=== PATIENT | female | born 1940 | race Caucasian/White ===

== ENCOUNTER → 2017-02-09 16:25 | Outpatient (CLI) | payer MEDICARE, OTHER | END | disposition home or self-care (01) | LOC: D.US 16:00 | DX: M79.605 Pain in left leg (principal); M79.604 Pain in right leg; R22.43 Localized swelling, mass and lump, lower limb, bilateral ==

== ENCOUNTER 2018-04-03 21:45 | Observation (INO) | payer MEDICARE, OTHER ==
[~2018-04-03] VITALS: Ht 167.6 cm; Wt 75.1 kg
--- NOTE | ~2018-04-03 | MORECARE ---
CASE MANAGEMENT DISCHARGE SUMMARY PATIENT: LUIS TELLES HEATHER UNIT: [id number] ADM DATE: 04/03/18 AGE: 78 : 40 SEX: F ROOM/BED: D.2121 AUTHOR: VÍCTOR LAN PHYSICIAN: REFERRING PHYSICIAN: WILLOW DICKSON MD DATE OF SERVICE: 04/04/18 Discharge Plan Patient Name: LUIS TELLES Facility: [facility] : 1940 Planned Disposition: Home Anticipated Discharge Date: 04/04/18 Discharge Date: Expected LOS: 1 Initial Reviewer: [email or web address] Initial Review Date: 04/04/2018 Generated: 04/04/18 6:16 pm Patient Name: LUIS TELLES Page [id number] at 1717 All edits/amendments must be made on the electronic document DICTATION DATE: 04/04/181715 MEDICATION SPECIALIST: NIURKA 04/04/181715 RPT#: [id number] DC DATE: STATUS: ADM IN [facility] [address] [place] [address] END OF REPORT
--- NOTE | ~2018-04-03 | HEMODYNAMI ---
PATIENT:LUIS TELLES MEDICAL RECORD: [id number] : 40 LOCATION:[facility].2122 ADMISSION DATE: 04/03/18 Generatedon:04/04/201812:40 Patient name: LUIS TELLES Patient #: [id number] SSN: : 1940 Date of study: 04/04/2018 Page: Of Hemodynamic Procedure Report Patient Data Patient Demographics Procedure consent was obtained First Name: LUIS Gender: Female Last Name: KOKI : 1940 [facility] Initial: HEATHER Age: 78 year(s) Patient #: [id number] Race: Unknown Additional ID: [id number] Contact details Address: [address] [place] [address] State: [place] City: [place] Zip code: [address] Admission Admission Data Admission Date: 04/03/2018 Admission Time: 23:43 Room #: [facility] Procedure Procedure Types Cath Procedure Diagnostic Procedure [facility] w/Coronaries Procedure Description Procedure Date Procedure Date: 04/04/2018 Procedure Start Time: 12:30 Procedure End Time: 12:35 Procedure Staff Name Function Francisco Mcgee MD Performing Physician Campos Shetty RT Monitor Alexsander Garcia RN Nurse Mignon Pappas RT Scrub Lex Em RT Sheet Metal Journeyman Procedure Data Cath Procedure Fluoroscopy Diagnostic fluoroscopy Total fluoroscopy Time: 0.8 time: 0.8 min min Diagnostic fluoroscopy Total fluoroscopy dose: 89 dose: 89 mGy mGy Contrast Material Contrast Material Type Amount (ml) Isovue 300 37 Entry Location Entry Primary Successful Side Size Upsize Upsize Entry Closure Styles ccessful Closure Location (Fr) 1 (Fr) 2 (Fr) Remarks Device Remarks Radial Right 6 Fr Mechanical artery Short Compression Estimated blood loss: 10 ml Diagnostic catheters Device Type Used For End Catheter Placement DIAGNOSTIC Abdiel 110cm Procedure 5Fr catheter ([id number]) Procedure Complications No complications Procedure Medications Medication Administration Route Dosage Oxygen etCO2 Nasal cannula 2 l/min Heparin Flush Bag added to field 2 bags (1000units/500ml NS) 0.9% NaCl I.V. 100 ml/hr Radial Cocktail added to field 1 syringe (Verapomil 2mg/Nitro 400mcg/Heparin 1500units) Fentanyl I.V. 50 mcg Versed I.V. 1 mg Radial Cocktail I.A. 1 syringe (Verapomil 2mg/Nitro 400mcg/Heparin 1500units) Fentanyl I.V. 50 mcg Versed I.V. 1 mg Hemodynamics Rest Heart Rate: 69 (bpm) Snapshots Pre Cath Intra NCS Post Cath Vital Signs Time Heart Resp SPO2 etCO2 NIBP (mmHg) Rhythm Pain Sedation Rate (ipm) (%) (mmHg) Status Level (bpm) 12:16:16 64 16 94 0 133/75(108) NSR 0 (11) 10(A) , No pain 12:20:38 72 17 93 0 138/69(115) NSR 0 (11) 10(A) , No pain 12:24:58 72 17 90 17.2 149/77(99) NSR 0 (11) 10(A) , No pain 12:29:18 72 16 93 14.2 143/75(117) NSR 0 (11) 10(A) , No pain 12:33:34 78 16 90 22.4 122/68(89) NSR 0 (11) 9(A) , No pain 12:38:00 76 16 91 38.2 134/71(99) NSR 0 (11) 9(A) , No pain Medications Time Medication Route Dose Verified Delivered Reason Notes Effectiveness by by 12:22:46 Oxygen etCO2 2 l/min Francisco Beltre Per Nasal Everardo Garcia RN physician cannula 12:22:55 Heparin Flush added 2 bags Fracnisco Beltre used for Bag to Everardo Garcia RN procedure (1000units/500ml field NS) 12:23:06 0.9% NaCl I.V. 100 Francisco Beltre Per ml/hr Everardo Garcia RN physician 12:23:16 Radial Cocktail added 1 Francisco Beltre used for (Verapomil to syringe Everardo Garcia RN procedure 2mg/Nitro field 400mcg/Heparin 1500units) 12:29:58 Fentanyl I.V. 50 mcg Francisco Beltre for sedation Everardo Garcia RN 12:30:04 Versed I.V. 1 mg Francisco Beltre for sedation Everardo Garcia RN 12:31:06 Radial Cocktail I.A. 1 Francisco Singh for (Verapomil syringe Everardo Mcgee MD vasodilation 2mg/Nitro 400mcg/Heparin 1500units) 12:32:14 Fentanyl I.V. 50 mcg Francisco Beltre for sedation Everardo Garcia RN 12:32:19 Versed I.V. 1 mg Francisco Beltre for sedation Everardo Garcia wet process head miller Log Time Note 11:50:45 Lex Em RT(R) sent for patient. Start room use. 11:58:51 Time tracking: Regular hours (M-F 7:00 - 5:00) 11:58:55 Plan of Care:Hemodynamics will remain stable., Cardiac rhythm will remain stable., Comfort level will be maintained., Respiratory function will remain adequate., Patient/ family verbilizes understanding of procedure., Procedure tolerated without complication., Recovers from procedure without complications.. 12:06:40 Patient received from PCU to CCL 3 Alert and oriented. Tansferred to table in Supine position. 12:06:41 Warm blankets applied, and burak hugger turned on for patient comfort. 12:06:42 Correct patient and procedure confirmed by team. 12:06:43 Signed procedure consent form obtained from patient. 12:06:44 ECG and BP/O2 sat monitors applied to patient. 12:06:44 Full Disclosure recording started 12:15:03 Vital chart was started 12:21:49 Baseline sample Acquired. 12:21:54 Rhythm: sinus rhythm 12:22:20 H&P Date Dictated: 04/03/2018 Within 30 days and on chart., H&P Addendum completed by physician on day of procedure. (MUST COMPLETE FOR ALL OUTPATIENTS). 12:22:20 Pre-procedure instructions explained to patient. 12:22:21 Pre-op teaching completed and patient verbalized understanding. 12:22:23 Family in patients room. 12:22:24 Patient NPO since Midnight. 12:22:26 Is the patient allergic to Iodine/contrast media? No. 12:22:34 Is patient on blood thinner?No 12:22:36 Patient diabetic? No. 12:22:38 Previous problem with sedation/anesthesia? No ? 12:22:39 Snore? Yes 12:22:41 Sleep apnea? No 12:22:43 Deviated septum? No 12:22:44 Opens mouth fully? Yes 12:22:45 Sticks out tongue? Yes 12:22:46 Oxygen 2 l/min etCO2 Nasal cannula was administered by Alexsander Garcia RN; Per physician; 12:22:46 Airway obstruction? No ? 12:22:49 Dentures? Yes IN 12:22:55 Heparin Flush Bag (1000units/500ml NS) 2 bags added to field was administered by Alexsander Garcia RN; used for procedure; 12:23:06 0.9% NaCl 100 ml/hr I.V. was administered by Alexsander Garcia RN; Per physician; 12:23:16 Radial Cocktail (Verapomil 2mg/Nitro 400mcg/Heparin 1500units) 1 syringe added to field was administered by Alexsander Garcia RN; used for procedure; 12:23:23 Pre procedure: right dorsailis pedis pulse 1+ Palpable, but thready & weak; easily obliterated 12:23:24 Modified Hair's test Ulnar < 7 seconds 12:23:26 Patient pain scale 0/10 ?. 12:23:30 IV patent on arrival in left forearm with 0.9% NaCl at [facility]. 12:23:33 Lab results completed and on chart. 12:23:38 Right Radial & Right Groin area was prepped with chlora-prep and draped in sterile fashion 12::39 Alarms reviewed by R. N. 12:23:40 Sharps counted by scrub and verified by R.N. 12::44 Physician paged 12::31 Physician arrived 12::31 --------ALL STOP TIME OUT------ 12:28:32 Final Timeout: patient, procedure, and site verified with staff and physician. All members of the team are in agreement. 12:28:36 Right Radial & Right Groin site verified by team. 12::39 Physical assessment completed. ASA score P 2 - A patient with mild systemic disease as per Francisco Mcgee MD. 12::45 Sedation plan: IV Moderate Sedation Medication:Versed, Fentanyl 12:29:23 Use device set Radial Dx or PCI 12:29:25 ACIST Syringe (30908) opened to sterile field. 12:29:25 Medline Cath Pack ([id number]) opened to sterile field. 12:29: Bag Decanter () opened to sterile field. 12:: ACIST Hand Control (35981) opened to sterile field. 12::28 ACIST Manifold (41504) opened to sterile field. 12:29:29 Tegaderm 4 x 4 (1626W) opened to sterile field. 12::29 MBrace Wrist Support ([id number]) opened to sterile field. 12::33 SHEATH 6FR Slender (45-3861) opened to sterile field. 12:29:58 Fentanyl 50 mcg I.V. was administered by Alexsander Garcia RN; for sedation; 12:30:04 Versed 1 mg I.V. was administered by Alexsander Garcia RN; for sedation; 12:30:05 Procedure started. 12:30:12 Local anesthetic to right radial artery with Lidocaine 2% by Francisco Mcgee MD.INITIAL ACCESS ONLY 12:30:20 Zero performed for pressure channel P1 12:31:02 A 6 Fr Short sheath was inserted into the Right Radial artery 12:31:06 Radial Cocktail (Verapomil 2mg/Nitro 400mcg/Heparin 1500units) 1 syringe I.A. was administered by Francisco Mcgee MD; for vasodilation; 12:31:35 A DIAGNOSTIC Abdiel 110cm 5Fr catheter (024582) was advanced over the wire and used for Procedure. 12:31:43 DIAGNOSTIC WIRE .035 260cm J wire (761438) opened to sterile field. 12:31:55 LV angiography performed. 12:31:57 LV gram done using DONATO 12:32:03 EF : 60 % 12:32:13 Injector settings: Ml/sec: 5, Volume: 15, 12:32:14 Fentanyl 50 mcg I.V. was administered by Alexsander Garcia RN; for sedation; 12:32:18 LCA angiography performed. 12:32:19 Versed 1 mg I.V. was administered by Alexsander Garcia RN; for sedation; 12:32:53 RCA angiography performed. 12:33:05 Catheter removed. 12:33:07 TR BAND Standard ([id number]) opened to sterile field. 12:33:21 Sheath removed intact; hemostasis achieved with Mechanical Compression to the Right Radial artery. 12:33:24 Procedure ended.(Physican Out) 12:34:03 Fluoroscopy time 00.80 minutes. 12:34:17 Fluoroscopy dose: 89 mGy 12:34:17 Flurop Dose total: 89 12:34:21 Contrast amount:Isovue 300 37ml. 12:34:23 Sharps counted by scrub and verified by R.N. 12:34:24 Insertion/operative site no bleeding no hematoma. 12:34:32 TR band inflated with 12cc of air. 12:34:34 Post Procedure Pulses reassessed and unchanged 12:34:37 Post-procedure physical assessment completed. ASA score P 2 - A patient with mild systemic disease as per Francisco Mcgee MD. 12:34:40 Post procedure rhythm: unchanged. 12:34:43 Estimated blood loss: 10 ml 12:34:44 Post procedure instruction explained to patient.Patient verbalizes understanding. 12:34:44 Patient needs reinforcement of post procedure teaching. 12:34:50 Procedure and supply charges have been captured, reviewed, submitted and are correct. 12:34:52 Procedure Complication : No complications 12:35:22 Vital chart was stopped 12:35:23 See physician's report for complete and final results. 12:35:[address] [facility]. 12:35:[address] Patient [address] [facility] with Bed. 12:35:58 Procedure ended. 12:35:58 Full Disclosure recording stopped 12:38:33 End room use (Document Last) Device Usage Item Name Manufacture Quantity Catalog Hospital Part Current Minimal Lot# / Number Charge Number Stock Stock Serial# Code ACIST Acist 1 77722 [id number] 619730 338444 20 Syringe Medical (29548) Systems Inc Medline Medline 1 [id number] [id number] 71764 313180 5 Cath Pack ([id number]) Bag Microtek 1 616194 72943 434387 5 Decanter Medical Inc. () ACIST Hand Acist 1 81591 820925 205792 818944 5 Control Medical (83322) Systems Inc ACIST Acist 1 82131 720332 101574 126932 5 Manifold Medical (01888) Systems Inc Tegaderm 4 3M 1 1626W 498077 096229 270997 5 x 4 (1626W) MBrace Advanced 1 [id number] 678115 35951 332949 5 Wrist Vascular Support Dynamics ([id number]) SHEATH 6FR Terumo 1 [id number] 190936 768935 313310 5 Slender (801060) DIAGNOSTIC Terumo 1 40-5794 009071 213613 981995 5 Abdiel 110cm 5Fr catheter (026940) DIAGNOSTIC [place] 1 553639 324373 781554 166470 30 WIRE .035 260cm J wire (300665) TR BAND Terumo 1 [id number] 301092 585759 068569 40 Standard ([id number]) Signature Audit [place] Stage Time Signature Unsigned Intra-Procedure 04/04/2018 Campos Shetty 12:40:17 PM RT(R) Signatures Monitor : Campos Shetty RT Signature : Date : Time : [address] [address]
--- NOTE | ~2018-04-03 | OP ---
PATIENT NAME: LUIS TELLES MEDICAL RECORD: [id number] :40 LOCATION:D.M2 D.2 ADMISSION DATE:04/03/18 SURGEON: CHARLEEN PICKARD MD DATE OF OPERATION: 04/04/2018 PROCEDURES: 1. Left heart catheterization. 2. Selective coronary angiography. 3. Left ventriculogram. INDICATION: Chest pain compatible with angina. PROCEDURE IN DETAIL: After informed consent was obtained and after a detailed explanation of the risks, benefits as well as alternative therapies, the patient elected to proceed with angiogram and heart catheterization. The right radial area was prepped and draped in normal sterile fashion. Right radial artery was cannulated via modified Seldinger technique with placement of 5-Serbian sheath. All catheters exchanged through this sheath. FINDINGS: Left ventriculogram was performed in a standard 30-degree DONATO view, reveals good cardiac wall motion throughout all segments. Overall ejection fraction estimated at 60%. SELECTIVE CORONARY ANGIOGRAPHY: Left main, left anterior descending, left circumflex, right coronary artery are all smooth-walled vessel with no angiographic evidence of coronary artery disease. OVERALL IMPRESSION: 1. No angiographic evidence of coronary artery disease. 2. Normal left heart pressures. 3. Normal left ventricular systolic function. Chest pain is noncardiac in etiology. No further cardiac workup needs to be ascertained. TRANSINT:[id number] Voice Confirmation ID: [id number] DOCUMENT ID: [id number] CHARLEEN PICKARD MD at 1228 CC: [id number] DICTATION DATE: 04/04/18 1237 WEIGHT TRAINER: 04/04/18 1505 DIS IN 04/04/18 [id number] [place] [address]
[2018-04-03] MEDS ORDERED: OMEPRAZOLE40 MG PO (21:58)
[2018-04-03] MEDS ORDERED: ADALAT CC90 MG PO (21:58)
[2018-04-03] MEDS ORDERED: ROBAXIN500 MG PO (22:00)
[2018-04-03] MEDS ORDERED: IBUPROFEN800 MG PO (22:01)
[2018-04-03] MEDS ORDERED: HYDROCODON-ACET15 ML PO (22:02)
[2018-04-03] MEDS ORDERED: NEURONTIN 300300 MG PO (22:03)
[2018-04-03] MEDS ORDERED: ESTRACE1 MG PO (22:04)
[2018-04-03] MEDS ORDERED: CELEXA20 MG PO (22:13)
[2018-04-03] MEDS ORDERED: VALIUM5 MG PO (22:14)
[2018-04-03 22:19] LABS: BASOPHILS 0.5 % (0-2); EOSINOPHILS 3.1 % (0-7); HEMOGLOBIN 13.1 g/dL (12-16); IMMATURE GRANULOCYTES 0.1 % (0-5); LYMPHOCYTES 33.7 % (15-50); MCH 31.6 pg (26.0-34.0); MCHC 33.6 g/dL (31.0-37.0); MCV 94.2 fL (80.0-100.0); MEAN PLATELET VOLUME 9.5 fL (7.4-10.4); MONOCYTES 5.7 % (2-11); NEUTROPHILS 56.9 % (40-80); RBC 4.14 10x6/uL (4.00-5.40); RDW 13.3 % (11.5-14.5); WBC 8.5 10x3/uL (4.8-10.8)
[2018-04-03 22:22] LABS: PLATELET COUNT 296 10x3/uL (130-400)
[2018-04-03 22:36] LABS: APTT 29.1 SECONDS (22.8-39.4); PROTIME 12.7 SECONDS (11.6-15.0)
[2018-04-03 22:38] VITALS: BP 144/66
[2018-04-03 22:53] LABS: ALBUMIN 3.6 g/dL (3.4-5.0); ALKALINE PHOSPHATASE 69 U/L (46-116); ALT (SGPT) 31 U/L (10-68); BILIRUBIN - TOTAL 0.14 mg/dL (0.2-1.3); CALC OSMOLALITY 285 mosm/kg (275-300); CALCIUM 8.1 mg/dL (8.5-10.1); CARBON DIOXIDE 23.5 mmol/L (21.0-32.0); CHLORIDE - SERUM 104 mmol/L (98-107); CREATININE - SERUM 0.9 mg/dL (0.6-1.3); GLUCOSE 94 mg/dL (74-106); POTASSIUM - SERUM 3.9 mmol/L (3.5-5.1); PROTEIN - SERUM 7.4 g/dL (6.4-8.2); SODIUM 142 mmol/L (136-145); UREA NITROGEN 20 mg/dL (7-18); eGFR NON AFRICAN AMERICAN 64 mL/min (90-120)
[2018-04-03 22:58] LABS: CKMB 1.2 U/L (0.0-3.6); CREATINE KINASE 28 UL (21-215); MAGNESIUM - SERUM 2.3 mg/dL (1.8-2.4)
[2018-04-03 23:14] LABS: TROPONIN-I < 0.017 ng/mL (0.000-0.060)
[2018-04-04] VITALS (8 sets, daily range): BP systolic 118–140; BP diastolic 60–84; Ht 167.6 cm; Wt 75.1 kg
[2018-04-04] MEDS ORDERED: BUMETANIDE0.5 MG PO (01:42)
[2018-04-04] MEDS ORDERED: BUSPAR 15 MG TA15 MG PO (01:43)
[2018-04-04 03:34] LABS: BASOPHILS 0.6 % (0-2); EOSINOPHILS 3.3 % (0-7); HEMATOCRIT 36.7 % (36.0-48.0); HEMOGLOBIN 12.1 g/dL (12-16); IMMATURE GRANULOCYTES 0.1 % (0-5); LYMPHOCYTES 36.7 % (15-50); MCH 31.2 pg (26.0-34.0); MCV 94.6 fL (80.0-100.0); MEAN PLATELET VOLUME 9.8 fL (7.4-10.4); MONOCYTES 6.1 % (2-11); NEUTROPHILS 53.2 % (40-80); PLATELET COUNT 301 10x3/uL (130-400); RBC 3.88 10x6/uL (4.00-5.40); RDW 13.3 % (11.5-14.5); WBC 8.5 10x3/uL (4.8-10.8)
[2018-04-04 03:58] LABS: CALC OSMOLALITY 278 mosm/kg (275-300); CALCIUM 7.4 mg/dL (8.5-10.1); CARBON DIOXIDE 26.9 mmol/L (21.0-32.0); CHLORIDE - SERUM 103 mmol/L (98-107); CREATININE - SERUM 0.7 mg/dL (0.6-1.3); GLUCOSE 81 mg/dL (74-106); POTASSIUM - SERUM 4.3 mmol/L (3.5-5.1); SODIUM 139 mmol/L (136-145); TROPONIN-I < 0.017 ng/mL (0.000-0.060); UREA NITROGEN 19 mg/dL (7-18); eGFR NON AFRICAN AMERICAN 86 mL/min (90-120)
[2018-04-04] MEDS ORDERED: AUGMENTIN 875-11 TAB PO (15:57)
== END 2018-04-04 18:02 | disposition home or self-care (01) ==
LOC: D.ER 21:45 → OBSVTIME 23:43 → D.M2 23:43
PROVIDERS: Family Medicine
DX: R07.89 Other chest pain (principal); I10 Essential (primary) hypertension; K21.9 Gastro-esophageal reflux disease without esophagitis; M81.0 Age-related osteoporosis without current pathological fracture; J01.90 Acute sinusitis, unspecified

== ENCOUNTER 2018-06-08 12:26 | Inpatient (IN) | payer MEDICARE, OTHER ==
[~2018-06-08] VITALS: Ht 167.6 cm; Wt 80.5 kg
--- NOTE | ~2018-06-08 | HEMODYNAMI ---
PATIENT:LUIS TELLES MEDICAL RECORD: [id number] : 40 LOCATION:[facility] D.2117 ADMISSION DATE: 06/09/18 Generatedon:06/12/20189:46 Patient name: LUIS TELLES Patient #: [id number] SSN: : 1940 Date of study: 06/12/2018 Page: Of Hemodynamic Procedure Report Patient Data Patient Demographics Procedure consent was obtained First Name: LIUS Gender: Female Last Name: KOKI : 1940 [facility] Initial: HEATHER Age: 78 year(s) Patient #: [id number] Race: Unknown Additional ID: [id number] Contact details Address: [address] [place] [address] State: [place] City: [place] Zip code: [address] Past Medical History Allergies Allergen Reaction Date Comments Reported Codeine 06/12/2018 Admission Admission Data Admission Date: 06/09/2018 Admission Time: 17:50 Room #: D.7 Lab Results Lab Result Date: 06/12/2018 Lab Result Time: 0:00 Biochemistry Name Units Result Min Max BUN mg/dl 11 --(-*--)-- 7 18 Creatinine mg/dl 0.7 --(*---)-- 0.6 1.3 CBC Name Units Result Min Max Hemoglobin g/dl 12.2 *-(----)-- 13.5 17.5 Procedure Procedure Types Cath Procedure Diagnostic Procedure Cardioversion External Procedure Description Procedure Date Procedure Date: 06/12/2018 Procedure Start Time: 9:39 Procedure End Time: 9:45 Procedure Staff Name Function Francisco Mcgee MD Performing Physician Vincent Lorenzo RT Monitor Chela Hilmlan RT Monitor Jagjit Charlton RN Nurse Procedure Data Cath Procedure Fluoroscopy Diagnostic fluoroscopy Total fluoroscopy Time: 0 time: 0 min min Diagnostic fluoroscopy Total fluoroscopy dose: 0 dose: 0 mGy mGy Estimated blood loss: 0 ml Procedure Complications No complications Procedure Medications Medication Administration Route Dosage 0.9% NaCl I.V. 100 ml/hr Oxygen NC 10 l/min Refer to Anesthesia Notes for Sedation Medications Hemodynamics Rest HGB: 12.2 (g/dl) Heart Rate: 85 (bpm) Snapshots Pre Cath Intra NCS Post Cath Vital Signs Time Heart Resp SPO2 etCO2 NIBP (mmHg) Rhythm Pain Sedation Rate (ipm) (%) (mmHg) Status Level (bpm) 9:26:44 86 10 95 0 130/81(101) NSR 0 (11) 10(A) , No pain 9:30:56 85 18 97 0 143/65(74) NSR 0 (11) 10(A) , No pain 9:35:08 78 22 96 0 142/75(104) NSR 0 (11) 8(A) , No pain 9:39:20 75 20 97 0 124/73(89) NSR 0 (11) 9(A) , No pain 9:42:59 69 19 96 0 124/57(83) NSR 0 (11) 9(A) , No pain Medications Time Medication Route Dose Verified Delivered Reason Notes Effectivene ss by by 9:33:02 0.9% NaCl I.V. 100 Jagjit Danielson Per ml/hr Latesha Charlton physician RN RN 9:33:19 Oxygen NC 10 Jagjit Danielson for low l/min Latesha Charlton 02 sats RN RN 9:35:00 Refer to Jagjit Danielson for Anesthesia Latesha Charlton sedation Notes for RN RN Sedation Medications Procedure Log Time Note 8:55:16 Signed procedure consent form obtained from patient. 8:55:17 Diagnostic Cath status Elective 8:55:18 Time tracking: Regular hours (M-F 7:00 - 5:00) 8:55:22 Plan of Care:Hemodynamics will remain stable., Cardiac rhythm will remain stable., Comfort level will be maintained., Respiratory function will remain adequate., Patient/ family verbilizes understanding of procedure., Procedure tolerated without complication., Recovers from procedure without complications.. 8:57:18 H&P Date Dictated: 06/09/2018 Within 30 days and on chart.. 8:58:40 Patient allergic to Codeine 8:58:57 Lab Result : BUN 11 mg/dl 8:58:57 Lab Result : Creatinine 0.7 mg/dl 8:58:57 Lab Result : Hemoglobin 12.2 g/dl 9:04:17 Jagjit Charlton RN sent for patient. Start room use. 9:15:57 Carlos Alberto Watson CRNA present and monitoring pt for TIVA. 9:20:33 Patient arrived from Med II to CCL 2. Patient remains on bed/stretcher for procedure. 9:20:38 Warm blankets applied, and burak hugger turned on for patient comfort. 9:20:38 Correct patient and procedure confirmed by team. 9:20:39 ECG and BP/O2 sat monitors applied to patient. 9:25:32 Vital chart was started 9:27:27 Rhythm: atrial fibrillation 9:27:28 Full Disclosure recording started 9:28:50 Pre-procedure instructions explained to patient. 9:28:50 Pre-op teaching completed and patient verbalized understanding. 9:28:52 Family unavailable. 9:28:53 Patient NPO since Midnight. 9:28:56 Is the patient allergic to Iodine/contrast media? No. 9:28:57 Is patient on blood thinner?No 9:28:58 Patient diabetic? No. 9:30:07 Previous problem with sedation/anesthesia? No ? 9:30:08 Snore? No 9:30:09 Sleep apnea? No 9:30:09 Deviated septum? No 9:30:10 Opens mouth fully? Yes 9:30:10 Sticks out tongue? Yes 9:30:14 Airway obstruction? Yes pneumonia 9:30:17 Dentures? Yes out 9:30:20 Patient pain scale 0/10 ?. 9:30:26 IV patent on arrival in left forearm with 0.9% NaCl at KVO. 9:30:28 Lab results completed and on chart. 9:30:29 Alarms reviewed by Alesia Venegas 9:30:35 Quick Combo opened to sterile field. 9:30:40 Quick combo pads placed on patients chest and back. 9:30:44 Physician arrived 9:30:44 --------ALL STOP TIME OUT------ 9:30:44 Final Timeout: patient, procedure, and site verified with staff and physician. All members of the team are in agreement. 9:30:48 Fire Safety Assessment: C--Open oxygen or nitrous oxide is being used. 9:30:51 Physical assessment completed. ASA score P 3 - A patient with severe systemic disease as per Francisco Mcgee MD. 9:31:14 Sedation plan: TIVA Medication:Propofol 9:31:43 Baseline sample Acquired. 9:33:02 0.9% NaCl 100 ml/hr I.V. was administered by Jagjit Charlton RN; Per physician; 9:33:19 Oxygen 10 l/min NC was administered by Jagjit Charlton RN; for low 02 sats; 9:35:00 Refer to Anesthesia Notes for Sedation Medications was administered by Jagjit Charlton RN; for sedation; 9:37:11 Procedure started. 9:38:08 Defibrillator synced and charged to 275 Joules. 9:38:11 Shock delivered. 9:38:34 Patient cardioverted to sinus rhythm . 9:38:39 Procedure ended.(Physican Out) 9:41:32 Fluoroscopy time 00.00 minutes. 9:41:33 Fluoroscopy dose: 0 mGy 9:41:33 Flurop Dose total: 0 9:41:43 Post-procedure physical assessment completed. ASA score P 2 - A patient with mild systemic disease as per Francisco Mcgee MD. 9:41:46 Post procedure rhythm: sinus rhythm 9:41:48 Estimated blood loss: 0 ml 9:41:50 Post procedure instruction explained to patient.Patient verbalizes understanding. 9:41:50 Patient needs reinforcement of post procedure teaching. 9:42:22 Procedure and supply charges have been captured, reviewed, submitted and are correct. 9:42:25 Procedure Complication : No complications 9:45:30 Vital chart was stopped 9:45:31 See physician's report for complete and final results. 9:45:38 Report given to PCU. 9:45:40 Patient transfered to PCU with Bed. 9:45:42 Procedure ended. 9:45:42 Full Disclosure recording stopped 9:45:44 End room use (Document Last) Device Usage Item Manufacture Quantity Catalog Hospital Part Current Minimal Lot# / Name Number Charge Number Stock Stock Marshall al# Code [employer] 1 [id number] Combo Signature Audit [place] Stage Time Signature Unsigned Intra-Procedure 06/12/2018 Chela Hillman 9:46:10 AM RT(R) Signatures Monitor : Vincent Lorenzo RT Signature : Date : Time : Monitor : Chela Hillman Signature : RT Date : Time : [place] [address] [facility] [place] [address]
[~2018-06-08 12:26] MED LIST: ADALAT CC90 MG PO; AUGMENTIN 875-11 TAB PO; BUMETANIDE0.5 MG PO; BUSPAR 15 MG TA15 MG PO; CELEXA20 MG PO; ESTRACE1 MG PO; HYDROCODON-ACET15 ML PO; IBUPROFEN800 MG PO; NEURONTIN 300300 MG PO; OMEPRAZOLE40 MG PO; ROBAXIN500 MG PO; VALIUM5 MG PO
[2018-06-08 13:02] LABS: BASOPHILS 0.2 % (0-2); HEMATOCRIT 32.2 % (36.0-48.0); HEMOGLOBIN 10.7 g/dL (12-16); IMMATURE GRANULOCYTES 0.3 % (0-5); LYMPHOCYTES 8.4 % (15-50); MCHC 33.2 g/dL (31.0-37.0); MCV 93.3 fL (80.0-100.0); MEAN PLATELET VOLUME 9.7 fL (7.4-10.4); MONOCYTES 8.5 % (2-11); NEUTROPHILS 81.6 % (40-80); PLATELET COUNT 207 10x3/uL (130-400); RBC 3.45 10x6/uL (4.00-5.40); RDW 12.8 % (11.5-14.5); WBC 12.7 10x3/uL (4.8-10.8)
[2018-06-08 13:11] LABS: APTT 35.6 SECONDS (22.8-39.4); INR 1.08 (0.85-1.17); PROTIME 13.5 SECONDS (11.6-15.0)
[2018-06-08 13:22] LABS: ALBUMIN 2.7 g/dL (3.4-5.0); ALKALINE PHOSPHATASE 101 U/L (46-116); ALT (SGPT) 21 U/L (10-68); BILIRUBIN - TOTAL 0.56 mg/dL (0.2-1.3); CALC OSMOLALITY 280 mosm/kg (275-300); CALCIUM 8.1 mg/dL (8.5-10.1); CARBON DIOXIDE 20.3 mmol/L (21.0-32.0); CHLORIDE - SERUM 105 mmol/L (98-107); CREATININE - SERUM 0.8 mg/dL (0.6-1.3); GLUCOSE 126 mg/dL (74-106); POTASSIUM - SERUM 3.7 mmol/L (3.5-5.1); PROTEIN - SERUM 6.7 g/dL (6.4-8.2); SODIUM 139 mmol/L (136-145); UREA NITROGEN 15 mg/dL (7-18); eGFR NON AFRICAN AMERICAN 73 mL/min (90-120)
[2018-06-08 13:28] LABS: CKMB 1.1 U/L (0.0-3.6); CREATINE KINASE 16 UL (21-215)
[2018-06-08 13:29] LABS: TROPONIN-I < 0.017 ng/mL (0.000-0.060)
[2018-06-08 13:30] VITALS: BP 136/71
[2018-06-08 15:01] VITALS: BP 135/85
--- NOTE | 2018-06-08 15:12 | NUR ---
DR. PICKARD AT THE BEDSIDE AT THIS TIME TO SEE PT.
--- NOTE | 2018-06-08 16:12 | NUR ---
PT GIVEN REGULAR DIET MEAL TRAY ORDERED.
--- NOTE | 2018-06-08 18:15 | NUR ---
RECEIVED PT TO ROOM 2116 AAOX4 RESP UNLABORED O2 ON AT 3LPM NC TELEMTRY AFIB RATE 99 DENIOES ANY PAIN OR DISCOMFORT AT THIS TIME
--- NOTE | 2018-06-08 19:48 | NUR ---
RECIEVED UP IN BED WITH EYES OPEN AND TV ON. ALERT AND ORIENTED X4. O2@ 3 LITERS PER N/C. IV TO LEFT WRIST. DENIES ANY NEEDS AT THIS TIME.
[2018-06-08 22:08] VITALS: BP 124/70
[2018-06-09 03:37] VITALS: BP 124/70; BMI 28.8
[2018-06-09 05:03] LABS: BASOPHILS 0.4 % (0-2); EOSINOPHILS 0.1 % (0-7); HEMATOCRIT 36.7 % (36.0-48.0); HEMOGLOBIN 12.2 g/dL (12-16); IMMATURE GRANULOCYTES 0.3 % (0-5); LYMPHOCYTES 10.3 % (15-50); MCH 31.4 pg (26.0-34.0); MCHC 33.2 g/dL (31.0-37.0); MCV 94.6 fL (80.0-100.0); MONOCYTES 5.9 % (2-11); PLATELET COUNT 244 10x3/uL (130-400); RBC 3.88 10x6/uL (4.00-5.40); RDW 12.9 % (11.5-14.5); WBC 15.1 10x3/uL (4.8-10.8)
[2018-06-09 05:18] LABS: ANION GAP 17.1 mmol/L (8-16); CALCIUM 8.3 mg/dL (8.5-10.1); CARBON DIOXIDE 21.3 mmol/L (21.0-32.0); CREATININE - SERUM 0.8 mg/dL (0.6-1.3); POTASSIUM - SERUM 3.4 mmol/L (3.5-5.1)
--- NOTE | 2018-06-09 07:30 | NUR ---
RECEIVED PT IN BED EYES CLOSED RESP UNLABORED NAD NOTED
[2018-06-09 07:40] VITALS: BP 131/86
[2018-06-09 11:14] VITALS: BP 141/57
[2018-06-09 13:08] LABS: % SATURATION 6 % (15-55); IRON 18 ug/dl (35-150); TOTAL IRON BIND CAPACITY 273 ug/dl (260-445); UNSAT IRON BIND CAPACITY 255 ug/dl (150-375)
[2018-06-09 13:19] VITALS: BMI 28.7
[2018-06-09 15:20] VITALS: BP 139/68
[2018-06-09 16:30] VITALS: BP 167/77
--- NOTE | 2018-06-09 19:27 | NUR ---
RECIEVED UP IN BED WITH EYES OPEN AND TV ON. ALERT AND ORIENTED X4. O2@ 5 LITERS PER HIGH FLOW NC. IV TO RIGHT AHND SL.. TELEMTRY IN PLACE. DENIES ANY NEEDS AT THIS TIME.
[2018-06-09 20:00] VITALS: BP 170/76
[2018-06-09 20:04] LABS: APPEARANCE CLEAR (CLEAR); BILIRUBIN NEGATIVE (NEGATIVE); COLOR YELLOW (YELLOW); GLUCOSE NEGATIVE (NEGATIVE); KETONE NEGATIVE (NEGATIVE); NITRITE NEGATIVE (NEGATIVE); PROTEIN NEGATIVE (NEGATIVE); SPECIFIC GRAVITY 1.015 (1.005-1.020); UROBILINOGEN NORMAL (NORMAL)
[2018-06-10] VITALS: BP 131/70
[2018-06-10 04:00] VITALS: BP 164/77
[2018-06-10 04:46] LABS: BASOPHILS 0.5 % (0-2); EOSINOPHILS 0.8 % (0-7); HEMATOCRIT 36.5 % (36.0-48.0); HEMOGLOBIN 12.2 g/dL (12-16); IMMATURE GRANULOCYTES 0.4 % (0-5); LYMPHOCYTES 9.9 % (15-50); MCH 31.4 pg (26.0-34.0); MCHC 33.4 g/dL (31.0-37.0); MCV 93.8 fL (80.0-100.0); MEAN PLATELET VOLUME 9.4 fL (7.4-10.4); MONOCYTES 6.1 % (2-11); NEUTROPHILS 82.3 % (40-80); PLATELET COUNT 251 10x3/uL (130-400); RBC 3.89 10x6/uL (4.00-5.40); RDW 12.7 % (11.5-14.5); WBC 12.4 10x3/uL (4.8-10.8)
[2018-06-10 04:55] LABS: CALCIUM 7.6 mg/dL (8.5-10.1); CARBON DIOXIDE 22.7 mmol/L (21.0-32.0); CHLORIDE - SERUM 103 mmol/L (98-107); CREATININE - SERUM 0.7 mg/dL (0.6-1.3); GLUCOSE 106 mg/dL (74-106); SODIUM 141 mmol/L (136-145); eGFR NON AFRICAN AMERICAN 86 mL/min (90-120)
[2018-06-10 04:56] LABS: CALC OSMOLALITY 280 mosm/kg (275-300); UREA NITROGEN 12 mg/dL (7-18)
[2018-06-10 04:57] LABS: POTASSIUM - SERUM 2.8 mmol/L (3.5-5.1)
[2018-06-10 08:06] VITALS: BP 142/64
[2018-06-10 13:06] VITALS: BP 134/70
[2018-06-10 17:55] VITALS: BP 110/66
--- NOTE | 2018-06-10 18:58 | NUR ---
RECIEVED UP IN BED WITH HOB ELEVTED. TALKING ON CELLPHONE. ALERT AND ORIENTED X4. UP AD GARRISON TO B/R. DENIES ANY NEEDS AT THIS TIME.
--- NOTE | 2018-06-10 19:34 | NUR ---
VOICED CONCERNS OVER HOME MEDICATIONS. DR ARCHER MAKING ROUNDS ON FLOOR AND GAVE VERBAL ORDER TO RESTAR SOME MEDS. PT NOTIFIED AND PLEASED.
[2018-06-10 20:24] VITALS: BP 130/51
[2018-06-11 01:24] VITALS: BP 139/70
[2018-06-11 05:02] VITALS: BP 118/62
[2018-06-11 06:20] LABS: ANION GAP 16.4 mmol/L (8-16); CALCIUM 7.5 mg/dL (8.5-10.1); CARBON DIOXIDE 23.1 mmol/L (21.0-32.0); CREATININE - SERUM 0.8 mg/dL (0.6-1.3); POTASSIUM - SERUM 3.5 mmol/L (3.5-5.1)
[2018-06-11 07:03] VITALS: BP 133/59
--- NOTE | 2018-06-11 07:30 | NUR ---
RECEIVED PT IN BED EYES CLOSED RESP UNLABORED C/O MCKEE
[2018-06-11 07:54] LABS: BASOPHILS 0.2 % (0-2); EOSINOPHILS 2.1 % (0-7); HEMATOCRIT 39.6 % (36.0-48.0); HEMOGLOBIN 13.2 g/dL (12-16); IMMATURE GRANULOCYTES 0.7 % (0-5); LYMPHOCYTES 12.5 % (15-50); MCH 31.3 pg (26.0-34.0); MCHC 33.3 g/dL (31.0-37.0); MCV 93.8 fL (80.0-100.0); MEAN PLATELET VOLUME 9.9 fL (7.4-10.4); MONOCYTES 9.1 % (2-11); NEUTROPHILS 75.4 % (40-80); PLATELET COUNT 262 10x3/uL (130-400); RBC 4.22 10x6/uL (4.00-5.40); RDW 12.9 % (11.5-14.5); WBC 11.1 10x3/uL (4.8-10.8)
--- NOTE | 2018-06-11 11:46 | EC ---
PATIENT:LUIS TELLES DATE OF SERVICE: 06/08/18 SEX: F MEDICAL RECORD: [id number] DATE OF : 40 LOCATION:D.M2 D.211 AGE OF PATIENT: 78 ADMISSION DATE: 06/09/18 REFERRING PHYSICIAN: INTERPRETING PHYSICIAN: CHARLEEN MCGEE MD ECHOCARDIOGRAM REPORT ECHO CHARGES 4 ECHO COMPLETE Date: 06/08/18 CLINICAL DIAGNOSIS: ECHOCARDIOGRAPHIC MEASUREMENTS (adult normal given) AC root (d.<3.7cm) 3.2 cm LV Septum d (<1.2 cm> 1.6 cm Valve Excursion 2.0 cm LV Septum (systole) 2.1 cm Left Atria (s.<4.0cm> 5.3 cm LVPW d(<1.2cm) 1.5 cm RV (d.<2.3cm) 2.2 cm LVPW (sytole) 2.1 cm LV diastole(<5.6CM) 3.7 cm MV E-F(>70mm/sec) cm LV systole 1.6 cm LVOT Diameter 1.7 cm MV exc.(>10mm) cm Est.ejection fraction (50-75%) % DOPPLER: LVIT cm/sec A cm/sec E 158 cm/sec LA cm/sec RVSP 47.3 mmHg LVOT 128 cm/sec AOP1/2T m/s Asc. Ao 155 cm/sec RVOT 91.0 cm/sec RA cm/sec PA 100 cm/sec AV Gradient Peak 9.6 mmHg AV Mean 4.8 mmHg AV Area 2.0 cm MV Gradient Peak 14.0 mmHg MV Mean 5.4 mmHg MV Area cm COMMENTS: Fabric Separator Operator: 1 BELLE MCBRIDEOE Director Of Pupil Personnel Program: 1 Dr. Mcgee TAPE# PACS Pericardial Effusion N DATE OF SERVICE: 06/08/2018 FINDINGS: 1. Left ventricular chamber size is within normal limits. Left ventricular systolic function is normal. Overall ejection fraction estimated at 65%. 2. Left atrium is enlarged at 5.3 cm. Right atrium and right ventricular chamber sizes are within normal limits. 3. Valvular structures have normal structure and motion. 4. Doppler interrogation reveals moderate mitral regurgitation and moderate tricuspid regurgitation. No other valvular insufficiency or stenosis. ECHOCARDIOGRAM REPORT [id number] LUIS TELLES Pulmonary systolic pressure is estimated 47 mmHg. 5. No evidence of pericardial effusion or left ventricular thrombus. TRANSINT:[id number] Voice Confirmation ID: [id number] DOCUMENT ID: [id number] CHARLEEN MCGEE MD at 1146 CC: [id number] DICTATION DATE: 06/08/181703 BARREL AND RECEIVER ALIGNER: 06/09/18 0052 ADM IN [facility] [address] [id number]
--- NOTE | 2018-06-11 11:46 | HP ---
PATIENT: LUIS BARRIENTOS MEDICAL RECORD: [id number] ACCOUNT: [id number] LOCATION:[address] : 40 ADMISSION DATE: 06/09/18 PCP: KAHNH DIAZ MD HISTORY AND PHYSICAL EXAMINATION DIAGNOSES: 1. Shortness of breath. 2. Pulmonary edema. 3. Atrial fibrillation, new onset. 4. Hypertension. HISTORY OF PRESENT ILLNESS: Ms. Barrientos presents with increasing shortness of breath, found to be in pulmonary edema, also found to be in new-onset atrial fibrillation with her heart rate in the 90-100 range. She is on no AV blocking medication. She is on nifedipine for blood pressure. She recently underwent cardiac catheterization for her shortness of breath. At that time, she was in sinus rhythm. Her cardiac catheterization showed no significant disease. PHYSICAL EXAMINATION: GENERAL APPEARANCE: Well nourished, well developed, appears stated age. Level of distress, comfortable. PSYCHIATRIC: Mental status, alert, normal affect. Orientation, oriented to time, place and person. EYES: Lids and conjunctiva, noninjected. No discharge, no pallor. ENT: Lips, teeth, gums, normal dentition. Oropharynx, no cyanosis, no pallor. NECK: Carotid arteries, bilateral normal upstroke, no bruits, no thrills. JUGULAR VEINS: No jugular venous pressure or distention. CERVICAL LYMPH NODES: Nontender, nonenlarged. THYROID: Not enlarged. Nontender. No nodules. LUNGS: Respiratory effort, unlabored. CHEST: Normal curvature. No thoracic deformity. No chest wall tenderness. Percussion, resonant. Auscultation, clear. No wheezes, no rales, no rhonchi. CARDIOVASCULAR: Precordial exam, nondisplaced. No heaves or pericardial thrills. Rate and rhythm, regular. Heart sounds, normal S1, normal S2. No S3, no gallop, no rub. Systolic murmur, not heard. Diastolic murmur, not heard. EXTREMITIES: No cyanosis, no edema. Peripheral pulses, full and equal in all extremities, except as noted. No bruits appreciated. ABDOMEN: Soft, nondistended. Normal aorta. No bruit. Nontender. No masses. Liver, nontender, no hepatomegaly. Spleen, nontender, no splenomegaly. MUSCULOSKELETAL: No joint tenderness. No joint swelling. No erythema. NEUROLOGICAL: Normal gait, normal strength, normal tone. SKIN: Warm and dry. OVERALL IMPRESSION: Atrial fibrillation, most likely she is having paroxysms of atrial fibrillation that was the etiology for symptomatology all along. At this time, we will start her on sotalol 80 mg b.i.d. as well as Eliquis. We will use IV Lasix for the pulmonary edema. Hopefully, this will clear and she will convert pharmacologically. If not, we can consider electrical cardioversion. TRANSINT:[id number] Voice Confirmation ID: [id number] DOCUMENT ID: [id number] HISTORY AND PHYSICAL [id number] LUIS BARRIENTOS JEFFREY MD at 1146 CC: [id number] DICTATION DATE: 06/08/18 1520 MOLD MAKING PLASTICS SHEETS SUPERVISOR: 06/08/18 1855 ADM IN [facility] [address] [place] [address]
--- NOTE | 2018-06-11 12:48 | NUR ---
Nutrition follow-up: Diet: regular with po intake ~50% of meals Pt now NPO for heart cath Labs reviewed Wt: 174# RDN following.
[2018-06-11 12:53] VITALS: BP 134/50
--- NOTE | 2018-06-11 15:17 | NUR ---
1400: Unable to flush saline lock in right hand. IV discontinued, catheter tip intact.
--- NOTE | 2018-06-11 15:19 | NUR ---
1415: IV started in right forearm using 22 fr catheter and catheter saline locked.
--- NOTE | 2018-06-11 15:20 | NUR ---
1520: IV site swollen and red. IV discontinued with catheter tip being intact.
[2018-06-11 17:47] VITALS: BP 122/62
--- NOTE | 2018-06-11 19:28 | NUR ---
RECIEVED UP IN BED WITH EYES CLOSED. EASILY AROUSES WITH VERBAL STIMULI. O2@ 5 LITERS PER HIGH FLOW NC. RESP EVEN AND UNLABORED. DENIES ANY NEEDS AT THIS TIME.
[2018-06-11 21:03] VITALS: BP 128/58
[2018-06-12 01:03] VITALS: BP 135/43
[2018-06-12 06:21] VITALS: BP 119/66
[2018-06-12 06:52] LABS: CALC OSMOLALITY 281 mosm/kg (275-300); CALCIUM 7.8 mg/dL (8.5-10.1); CARBON DIOXIDE 25.3 mmol/L (21.0-32.0); CHLORIDE - SERUM 105 mmol/L (98-107); CREATININE - SERUM 0.7 mg/dL (0.6-1.3); GLUCOSE 100 mg/dL (74-106); POTASSIUM - SERUM 3.5 mmol/L (3.5-5.1); SODIUM 142 mmol/L (136-145); UREA NITROGEN 11 mg/dL (7-18); eGFR NON AFRICAN AMERICAN 86 mL/min (90-120)
[2018-06-12 07:03] LABS: HEMATOCRIT 36.9 % (36.0-48.0); HEMOGLOBIN 12.2 g/dL (12-16); MCHC 33.1 g/dL (31.0-37.0); MCV 93.7 fL (80.0-100.0); MEAN PLATELET VOLUME 9.4 fL (7.4-10.4); PLATELET COUNT 415 10x3/uL (130-400); RBC 3.94 10x6/uL (4.00-5.40); RDW 12.7 % (11.5-14.5); WBC 11.8 10x3/uL (4.8-10.8)
[2018-06-12 07:57] LABS: EOSINOPHILS 3 % (0-7); LYMPHOCYTES 14 % (15-50); MONOCYTES 9 % (2-11); NEUTROPHILS 73 % (40-80); PLATELET ESTIMATE INCREASED
[2018-06-12 09:06] VITALS: BP 112/73
[2018-06-12 10:20] LABS: FOLATE (FOLIC ACID) - SERUM 13.1 ng/mL (>3.0)
--- NOTE | 2018-06-12 11:18 | OP ---
PATIENT NAME: LUIS TELLES MEDICAL RECORD: [id number] :40 LOCATION:D.M2 D.2117 ADMISSION DATE:06/09/18 SURGEON: CHARLEEN PICKARD MD DATE OF OPERATION: 06/12/2018 PROCEDURE: DC cardioversion. INDICATION: Atrial fibrillation. PROCEDURE IN DETAIL: IV conscious sedation was per anesthesia. Heart rate, O2 saturation, and blood pressure monitoring all undertaken, all of which remains stable. She received one shock at 275 joules, restoring sinus rhythm. OVERALL IMPRESSION: Successful DC cardioversion from atrial fibrillation to sinus rhythm. TRANSINT:[id number] Voice Confirmation ID: [id number] DOCUMENT ID: [id number] CHARLEEN PICKARD MD at 1118 CC: [id number] DICTATION DATE: 06/12/1840 ELECTRIC BLANKET WIRER: 06/12/18 1045 ADM IN [id number] [place] [address]
[2018-06-12 13:06] VITALS: BP 116/59
[2018-06-12] MEDS ORDERED: BETAPACE 80 MG80 MG PO (13:21)
[2018-06-12] MEDS ORDERED: ELIQUIS5 MG PO (13:21)
--- NOTE | 2018-06-12 13:24 | MORECARE ---
CASE MANAGEMENT DISCHARGE SUMMARY PATIENT: LUIS TELLES HEATHER UNIT: [id number] ADM DATE: 06/09/18 AGE: 78 : 40 SEX: F ROOM/BED: D.9936 AUTHOR: EDYTA,DOC PHYSICIAN: REFERRING PHYSICIAN: CHARLEEN PICKARD MD DATE OF SERVICE: 06/12/18 Discharge Plan Patient Name: LUIS TELLES Facility: [facility]:[place] : 1940 Planned Disposition: Home Anticipated Discharge Date: 06/12/18 Discharge Date: Expected LOS: 3 Initial Reviewer: [email or web address] Initial Review Date: 06/12/2018 Generated: 06/12/18 2:24 pm Comments DCP- Discharge Planning Updated by [email or web address]: Paul Juárez on 06/12/18 12:[address] Patient Name: LUIS TELLES Admission Status: ER Accout number: [id number] Admission Date: 06-09-2018 : 1940 Admission Diagnosis:SHORTNESS OF BREATH Attending: CLAYTON PICKARD Current LOS: 3 Anticipated DC Date: 06-12-2018 Planned Disposition: Home Primary Insurance: MEDICARE A & B Discharge Planning Comments: CM MET WITH PT IN ROOM TO DISCUSS DISCHARGE PLANNING AND NEEDS. PT REPORTS LIVING AT HOME INDEPENDENTLY AND ALONE. PT HAS NO MEDICAL EQUIPMENT AND NO OUTSIDE SERVICES ASSISTING IN THE HOME. CM DISCUSSED AVAILABILITY OF HOME HEALTH, REHAB SERVICES AND MEDICAL EQUIPMENT. PT DENIES DISCHARGE NEEDS, REPORTS HER FRIEND WILL PICK HER UP FOR DISCHARGE HOME. IMPORTANT MESSAGE FROM MEDICARE PROVIDED AND EXPLAINED. Manometer Technician: Paul Juárez DCPIA - Discharge Planning Initial Assessment Updated by [id number]: Paul Juárez on 06/12/18 1:23 pm * Is the patient Alert and Oriented? Yes * How many steps to enter\exit or inside your home? NONE * PCP DR DIAZ * [facility] [address] * Preadmission Environment Home Alone * ADLs Independent * Equipment None * Other Equipment NO MEDICAL EQUIPMENT PROVIDER PREFERENCE * List name and contact numbers for known caregivers / representatives who currently or will assist patient after discharge: CHRISTOPH NICE, FRIEND, * Verbal permission to speak to the caregivers and representatives has been obtained from the patient. N/A * Community resources currently utilized None * Please name any agencies selected above. NONE * Additional services required to return to the preadmission environment? No * Can the patient safely return to the preadmission environment? Yes * Has this patient been hospitalized within the prior 30 days at any hospital? No Coverage Notice Reviewer: [id number] Dago Mireles Notice Issued Date-Time: 06/08/2018 15:30 Notice Type: Medicare Outpatient Observation Notice Notice Delivered To: Patient Relationship to Patient: Application Development Project Manager Name: Delivery Method: HAND - Hand Delivered Megan Days: Prior Verbal Notification: Recipient Understood Notice: Yes Recipient Signature: Yes Med Rec Note Co-signed by Attending: Coverage Notice Comment: Reviewer: [email or web address] Dago Juárez Notice Issued Date-Time: 06/12/2018 11:30 Notice Type: IM Discharge Notice Notice Delivered To: Patient Relationship to Patient: Application Development Project Manager Name: Delivery Method: HAND - Hand Delivered Megan Days: Prior Verbal Notification: Recipient Understood Notice: Yes Recipient Signature: Yes Med Rec Note Co-signed by Attending: Coverage Notice Comment: Patient Name: LUIS TELLES Page [id number] at 1324 All edits/amendments must be made on the electronic document DICTATION DATE: 06/12/18 1324 MOLD OPERATOR: NIURKA 06/12/18 1324 RPT#: [id number] DC DATE: STATUS: ADM IN [facility] [address] [place] [address] END OF REPORT
[2018-06-12 19:11] VITALS: BP 134/53
[2018-06-12 22:27] VITALS: BP 118/43
[2018-06-13 02:16] VITALS: BP 119/34
[2018-06-13 05:44] VITALS: BP 114/29
[2018-06-13 06:16] LABS: BASOPHILS 0.2 % (0-2); EOSINOPHILS 5.2 % (0-7); HEMATOCRIT 34.1 % (36.0-48.0); HEMOGLOBIN 11.5 g/dL (12-16); IMMATURE GRANULOCYTES 0.6 % (0-5); LYMPHOCYTES 17.4 % (15-50); MCH 31.4 pg (26.0-34.0); MCHC 33.7 g/dL (31.0-37.0); MCV 93.2 fL (80.0-100.0); MEAN PLATELET VOLUME 9.1 fL (7.4-10.4); MONOCYTES 9.3 % (2-11); NEUTROPHILS 67.3 % (40-80); PLATELET COUNT 435 10x3/uL (130-400); RBC 3.66 10x6/uL (4.00-5.40); RDW 12.6 % (11.5-14.5); WBC 11.4 10x3/uL (4.8-10.8)
[2018-06-13 06:25] LABS: ANION GAP 16.1 mmol/L (8-16); CALCIUM 8.1 mg/dL (8.5-10.1); CARBON DIOXIDE 24.2 mmol/L (21.0-32.0); CREATININE - SERUM 0.8 mg/dL (0.6-1.3); POTASSIUM - SERUM 3.3 mmol/L (3.5-5.1)
--- NOTE | 2018-06-13 07:10 | NUR ---
REPORT RECIEVED FROM DEBEAKER. PATIENT LAYING IN BED WITH EYES CLOSED AND BREATHING EVENLY. VS GOOD. O2SAT 97% ON HF AT 5L. WILL CONTINUE WITH PLAN OF CARE. SR UP X 2 BED IN LOW POSITON AND CALL LIGHT IN REACH.
[2018-06-13 07:47] VITALS: BP 122/42
--- NOTE | 2018-06-13 08:00 | NUR ---
PATIENT AWAKE, ALERT ORIENTED X 4. POTASSIUM 3.3. MEDICATED WITH KDUR 40 MEQ PER MAR AND WILL RECHECK IN 4 HOURS. PATIENT DENIES AND NEEDS OR PAIN. WILL CONTINUE TO MONITOR.
--- NOTE | 2018-06-13 09:15 | NUR ---
PATIENT HR54 SR. BETAPACE [address] PICKARD. RT IN ROOM FOR WALK TEST. WHILE LYING IN BED, O2 REMOVED AND PATIENT SAT 81 %. DR PICKARD NOTIFIED. DR TREVIÑO IS CONSULTED. BETAPACE DECREASED TO 40 MG BID. WILL CONTINUE TO MONITOR PATIENT.
--- NOTE | 2018-06-13 09:41 | MORECARE ---
CASE MANAGEMENT DISCHARGE SUMMARY PATIENT: LUIS TELLES HEATHER UNIT: [id number] ADM DATE: 06/09/18 AGE: 78 : 40 SEX: F ROOM/BED: D.1596 AUTHOR: EDYTA,DOC PHYSICIAN: REFERRING PHYSICIAN: CHARLEEN PICKARD MD DATE OF SERVICE: 06/13/18 Discharge Plan Patient Name: LUIS TELLES Facility: [facility]:[place] : 1940 Planned Disposition: Home Anticipated Discharge Date: 06/13/18 Discharge Date: Expected LOS: 4 Initial Reviewer: [email or web address] Initial Review Date: 06/12/2018 Generated: 06/13/18 10:41 am Comments DCP- Discharge Planning Updated by [email or web address]: Paul Juárez on 06/12/18 12:[address] Patient Name: LUIS TELLES Admission Status: ER Accout number: [id number] Admission Date: 06-09-2018 : 1940 Admission Diagnosis:SHORTNESS OF BREATH Attending: CLAYTON PICKARD Current LOS: 3 Anticipated DC Date: 06-12-2018 Planned Disposition: Home Primary Insurance: MEDICARE A & B Discharge Planning Comments: CM MET WITH PT IN ROOM TO DISCUSS DISCHARGE PLANNING AND NEEDS. PT REPORTS LIVING AT HOME INDEPENDENTLY AND ALONE. PT HAS NO MEDICAL EQUIPMENT AND NO OUTSIDE SERVICES ASSISTING IN THE HOME. CM DISCUSSED AVAILABILITY OF HOME HEALTH, REHAB SERVICES AND MEDICAL EQUIPMENT. PT DENIES DISCHARGE NEEDS, REPORTS HER FRIEND WILL PICK HER UP FOR DISCHARGE HOME. IMPORTANT MESSAGE FROM MEDICARE PROVIDED AND EXPLAINED. Coating Machine Helper: Paul Juárez DCPIA - Discharge Planning Initial Assessment Updated by [id number]: Paul Juárez on 06/12/18 1:23 pm * Is the patient Alert and Oriented? Yes * How many steps to enter\exit or inside your home? NONE * PCP DR DIAZ * [facility] [address] * Preadmission Environment Home Alone * ADLs Independent * Equipment None * Other Equipment NO MEDICAL EQUIPMENT PROVIDER PREFERENCE * List name and contact numbers for known caregivers / representatives who currently or will assist patient after discharge: CHRISTOPH NICE, FRIEND, * Verbal permission to speak to the caregivers and representatives has been obtained from the patient. N/A * Community resources currently utilized None * Please name any agencies selected above. NONE * Additional services required to return to the preadmission environment? No * Can the patient safely return to the preadmission environment? Yes * Has this patient been hospitalized within the prior 30 days at any hospital? No Coverage Notice Reviewer: [id number] Dago Mireles Notice Issued Date-Time: 06/08/2018 15:30 Notice Type: Medicare Outpatient Observation Notice Notice Delivered To: Patient Relationship to Patient: Collar Trimmer Name: Delivery Method: HAND - Hand Delivered Megan Days: Prior Verbal Notification: Recipient Understood Notice: Yes Recipient Signature: Yes Med Rec Note Co-signed by Attending: Coverage Notice Comment: Reviewer: [id number] - Paul Juárez Notice Issued Date-Time: 06/12/2018 11:30 Notice Type: IM Discharge Notice Notice Delivered To: Patient Relationship to Patient: Collar Trimmer Name: Delivery Method: HAND - Hand Delivered Megan Days: Prior Verbal Notification: Recipient Understood Notice: Yes Recipient Signature: Yes Med Rec Note Co-signed by Attending: Coverage Notice Comment: Last DP export: 06/12/18 12:24 p Patient Name: LUIS TELLES Page [phone] at 0941 All edits/amendments must be made on the electronic document DICTATION DATE: 06/13/18940 CASK MAKER: NIURKA 06/13/18940 RPT#: [id number] DC DATE: STATUS: ADM IN [facility] [address] [place] [address] END OF REPORT
--- NOTE | 2018-06-13 10:30 | NUR ---
SPOKE WITH DR PICKARD. GIVE BETAPACE 40 INSTEAD OF 80 MG. HE WILL CHANGE THE ORDER. PATIENT GIVEN NEW DOSE.
[2018-06-13 11:26] VITALS: BP 108/36
[2018-06-13 12:21] VITALS: Ht 167.6 cm; Wt 80.5 kg
[2018-06-13 15:03] VITALS: BP 115/37
--- NOTE | 2018-06-13 16:02 | MORECARE ---
CASE MANAGEMENT DISCHARGE SUMMARY PATIENT: LUIS TELLES HEATHER UNIT: [id number] ADM DATE: 06/09/18 AGE: 78 : 40 SEX: F ROOM/BED: D.1234 AUTHOR: EDYTA,DOC PHYSICIAN: REFERRING PHYSICIAN: CHARLEEN PICKARD MD DATE OF SERVICE: 06/13/18 Discharge Plan Patient Name: LUIS TELLES Facility: [facility]:[place] : 1940 Planned Disposition: Home Anticipated Discharge Date: 06/15/18 Discharge Date: Expected LOS: 6 Initial Reviewer: [email or web address] Initial Review Date: 06/12/2018 Generated: 06/13/18 5:02 pm Comments DCP- Discharge Planning Updated by [email or web address]: Paul Juárez on 06/12/18 12:[address] Patient Name: LUIS TELLES Admission Status: ER Accout number: [id number] Admission Date: 06-09-2018 : 1940 Admission Diagnosis:SHORTNESS OF BREATH Attending: CLAYTON PICKARD Current LOS: 3 Anticipated DC Date: 06-12-2018 Planned Disposition: Home Primary Insurance: MEDICARE A & B Discharge Planning Comments: CM MET WITH PT IN ROOM TO DISCUSS DISCHARGE PLANNING AND NEEDS. PT REPORTS LIVING AT HOME INDEPENDENTLY AND ALONE. PT HAS NO MEDICAL EQUIPMENT AND NO OUTSIDE SERVICES ASSISTING IN THE HOME. CM DISCUSSED AVAILABILITY OF HOME HEALTH, REHAB SERVICES AND MEDICAL EQUIPMENT. PT DENIES DISCHARGE NEEDS, REPORTS HER FRIEND WILL PICK HER UP FOR DISCHARGE HOME. IMPORTANT MESSAGE FROM MEDICARE PROVIDED AND EXPLAINED. Sports Internship: Paul Juárez DCPIA - Discharge Planning Initial Assessment Updated by [email or web address]: Paul Juárez on 06/12/18 1:23 pm * Is the patient Alert and Oriented? Yes * How many steps to enter\exit or inside your home? NONE * PCP DR DIAZ * Pharmacy [facility] [address] * Preadmission Environment Home Alone * ADLs Independent * Equipment None * Other Equipment NO MEDICAL EQUIPMENT PROVIDER PREFERENCE * List name and contact numbers for known caregivers / representatives who currently or will assist patient after discharge: CHRISTOPH NICE, FRIEND, * Verbal permission to speak to the caregivers and representatives has been obtained from the patient. N/A * Community resources currently utilized None * Please name any agencies selected above. NONE * Additional services required to return to the preadmission environment? No * Can the patient safely return to the preadmission environment? Yes * Has this patient been hospitalized within the prior 30 days at any hospital? No Coverage Notice Reviewer: [email or web address] Dago Mireles Notice Issued Date-Time: 06/08/2018 15:30 Notice Type: Medicare Outpatient Observation Notice Notice Delivered To: Patient Relationship to Patient: Kennel Supervisor Name: Delivery Method: HAND - Hand Delivered Megan Days: Prior Verbal Notification: Recipient Understood Notice: Yes Recipient Signature: Yes Med Rec Note Co-signed by Attending: Coverage Notice Comment: Reviewer: [email or web address] Juárez Notice Issued Date-Time: 06/12/2018 11:30 Notice Type: IM Discharge Notice Notice Delivered To: Patient Relationship to Patient: Kennel Supervisor Name: Delivery Method: HAND - Hand Delivered Megan Days: Prior Verbal Notification: Recipient Understood Notice: Yes Recipient Signature: Yes Med Rec Note Co-signed by Attending: Coverage Notice Comment: Reviewer: YEHUDA Juárez Notice Issued Date-Time: 06/13/2018 14:15 Notice Type: IM Discharge Notice Notice Delivered To: Patient Relationship to Patient: Kennel Supervisor Name: Delivery Method: HAND - Hand Delivered Megan Days: Prior Verbal Notification: Recipient Understood Notice: Yes Recipient Signature: Yes Med Rec Note Co-signed by Attending: Coverage Notice Comment: Reviewer: YEHUDA Juárez Notice Issued Date-Time: 06/13/2018 15:10 Notice Type: Patient Choice Letter Notice Delivered To: Patient Relationship to Patient: Kennel Supervisor Name: Delivery Method: HAND - Hand Delivered Megan Days: Prior Verbal Notification: Recipient Understood Notice: Yes Recipient Signature: Yes Med Rec Note Co-signed by Attending: Coverage Notice Comment: [employer] Last DP export: 06/13/18 8:41 a Patient Name: LUIS TELLES Page [phone] at 1602 All edits/amendments must be made on the electronic document DICTATION DATE: 06/13/18 1602 PROFILING MACHINE SETUP OPERATOR: NIURKA 06/13/18 1602 RPT#: [id number] DC DATE: STATUS: ADM IN [facility] [address] [place] [address] END OF REPORT
--- NOTE | 2018-06-13 16:13 | MORECARE ---
CASE MANAGEMENT DISCHARGE SUMMARY PATIENT: LUIS TELLES HEATHER UNIT: [id number] ADM DATE: 06/09/18 AGE: 78 : 40 SEX: F ROOM/BED: D.7182 AUTHOR: EDYTA,DOC PHYSICIAN: REFERRING PHYSICIAN: CHARLEEN PICKARD MD DATE OF SERVICE: 06/13/18 Discharge Plan Patient Name: LUIS TELLES Facility: [facility]:[place] : 1940 Planned Disposition: Home Anticipated Discharge Date: 06/15/18 Discharge Date: Expected LOS: 6 Initial Reviewer: [email or web address] Initial Review Date: 06/12/2018 Generated: 06/13/18 5:12 pm Comments DCP- Discharge Planning Updated by [email or web address]: Paul Juárez on 06/13/18 3:[address] Patient Name: LUIS TELLES Encounter No: [id number] : 1940 Primary Insurance: MEDICARE A & B Anticipated DC Date: 06-15-2018 Planned Disposition: Home DCP follow-up note: CM RECEIVED DISCHARGE ORDER AND OXYGEN TESTING. CM MET WITH PT IN ROOM TO DICUSS DISCHARGE NEEDS AND PLANNING. CM DISCUSSED AVAILABILITY OF REHAB SERVICES, HOME HEALTH AND MEDICAL EQUIPMENT. PT DENIES DISCHARGE NEEDS OTHER THAN OXYGEN AND HOPES NOT TO NEED IT FOR VERY LONG. CM PROVIDED PT WITH MEDICAL EQUIPMENT COMPANY LISTING. PT HAS NOT CHOICE OF PROVIDER, CHOICE LETTER SIGNED. IMPORTANT MESSAGE FROM MEDICARE PROVIDED AND EXPLAINED. PT REPORTS PLAN TO RETURN HOME AT DISCHARGE. PT WILL NEED QUALIFYING OXYGEN TESTING AND PHYSICIAN ORDERS WITHIN 48 HOURS OF DISCHARGE FOR CM TO ARRANGE HOME AND PORTABLE OXYGEN SERVICES WITH NO PROVIDER PREFERENCE. CIRILO Marley DCP- Discharge Planning Updated by [email or web address]: Paul Juárez on 06/12/18 12:[address] Patient Name: LUIS TELLES Admission Status: ER Accout number: [id number] Admission Date: 06-09-2018 : 1940 Admission Diagnosis:SHORTNESS OF BREATH Attending: CLAYTON PICKARD Current LOS: 3 Anticipated DC Date: 06-12-2018 Planned Disposition: Home Primary Insurance: MEDICARE A & B Discharge Planning Comments: CM MET WITH PT IN ROOM TO DISCUSS DISCHARGE PLANNING AND NEEDS. PT REPORTS LIVING AT HOME INDEPENDENTLY AND ALONE. PT HAS NO MEDICAL EQUIPMENT AND NO OUTSIDE SERVICES ASSISTING IN THE HOME. CM DISCUSSED AVAILABILITY OF HOME HEALTH, REHAB SERVICES AND MEDICAL EQUIPMENT. PT DENIES DISCHARGE NEEDS, REPORTS HER FRIEND WILL PICK HER UP FOR DISCHARGE HOME. IMPORTANT MESSAGE FROM MEDICARE PROVIDED AND EXPLAINED. Plate Shop Helper: Paul Juárez DCPIA - Discharge Planning Initial Assessment Updated by [email or web address]: Paul Juárez on 06/12/18 1:23 pm * Is the patient Alert and Oriented? Yes * How many steps to enter\exit or inside your home? NONE * PCP DR DAIZ * Pharmacy [facility] ON [address] * Preadmission Environment Home Alone * ADLs Independent * Equipment None * Other Equipment NO MEDICAL EQUIPMENT PROVIDER PREFERENCE * List name and contact numbers for known caregivers / representatives who currently or will assist patient after discharge: CHRISTOPH NICE, FRIEND, * Verbal permission to speak to the caregivers and representatives has been obtained from the patient. N/A * Community resources currently utilized None * Please name any agencies selected above. NONE * Additional services required to return to the preadmission environment? No * Can the patient safely return to the preadmission environment? Yes * Has this patient been hospitalized within the prior 30 days at any hospital? No Coverage Notice Reviewer: [id number] Dago Juárez Notice Issued Date-Time: 06/13/2018 15:10 Notice Type: Patient Choice Letter Notice Delivered To: Patient Relationship to Patient: Full Service Supervisor Name: Delivery Method: HAND - Hand Delivered Megan Days: Prior Verbal Notification: Recipient Understood Notice: Yes Recipient Signature: Yes Med Rec Note Co-signed by Attending: Coverage Notice Comment: ANY MEDICAL EQUIPMENT COMPANY Reviewer: [id number] Dago Mireles Notice Issued Date-Time: 06/08/2018 15:30 Notice Type: Medicare Outpatient Observation Notice Notice Delivered To: Patient Relationship to Patient: Full Service Supervisor Name: Delivery Method: HAND - Hand Delivered Megan Days: Prior Verbal Notification: Recipient Understood Notice: Yes Recipient Signature: Yes Med Rec Note Co-signed by Attending: Coverage Notice Comment: Reviewer: [id number] Dago Juárez Notice Issued Date-Time: 06/13/2018 14:15 Notice Type: IM Discharge Notice Notice Delivered To: Patient Relationship to Patient: Full Service Supervisor Name: Delivery Method: HAND - Hand Delivered Megan Days: Prior Verbal Notification: Recipient Understood Notice: Yes Recipient Signature: Yes Med Rec Note Co-signed by Attending: Coverage Notice Comment: Reviewer: [id number] - Paul Juárez Notice Issued Date-Time: 06/12/2018 11:30 Notice Type: IM Discharge Notice Notice Delivered To: Patient Relationship to Patient: Full Service Supervisor Name: Delivery Method: HAND - Hand Delivered Megan Days: Prior Verbal Notification: Recipient Understood Notice: Yes Recipient Signature: Yes Med Rec Note Co-signed by Attending: Coverage Notice Comment: Last DP export: 06/13/18 3:02 p Patient Name: LUIS TELLES Page [phone] at 1613 All edits/amendments must be made on the electronic document DICTATION DATE: 06/13/18 1612 UNDER PRESSER: NIURKA 06/13/18 1612 RPT#: [id number] DC DATE: STATUS: ADM IN [facility] [address] [place] [address] END OF REPORT
[2018-06-13 22:04] VITALS: BP 118/47
[2018-06-14 01:17] VITALS: BP 104/52
[2018-06-14 06:12] LABS: BASOPHILS 0.3 % (0-2); HEMATOCRIT 32.8 % (36.0-48.0); LYMPHOCYTES 22.6 % (15-50); MCH 31.1 pg (26.0-34.0); MCHC 33.5 g/dL (31.0-37.0); MCV 92.7 fL (80.0-100.0); MEAN PLATELET VOLUME 8.9 fL (7.4-10.4); MONOCYTES 7.9 % (2-11); NEUTROPHILS 62.2 % (40-80); PLATELET COUNT 422 10x3/uL (130-400); RBC 3.54 10x6/uL (4.00-5.40); RDW 12.5 % (11.5-14.5); WBC 8.7 10x3/uL (4.8-10.8)
[2018-06-14 06:15] VITALS: BP 119/54
[2018-06-14 06:24] LABS: ANION GAP 14.8 mmol/L (8-16); CALCIUM 8.1 mg/dL (8.5-10.1); CARBON DIOXIDE 23.7 mmol/L (21.0-32.0); CREATININE - SERUM 0.8 mg/dL (0.6-1.3); POTASSIUM - SERUM 3.5 mmol/L (3.5-5.1)
--- NOTE | 2018-06-14 07:10 | NUR ---
REPORT RECIEVED FROM HOSPICE NURSE. PATIENT LAYING IN BED ON BACK AWAKE, ALERT AND ORIENTED X 4. PATIENT COMPLAINS OF A HEADACHE AT AN "8." MEDICATED PER MAR WITH FIORICET. VSS. PATIENT DENIES ANY OTHER NEEDS. WILL CONTINUE TO MONITOR. SR UP X 2 BED IN LOW POSITION AND CALL LIGHT IN REACH.
[2018-06-14 08:00] VITALS: BP 122/51
--- NOTE | 2018-06-14 09:48 | NUR ---
PATIENT LAYING IN BED ON RT SIDE WTIH EYES CLOSED AND BREATHING EVENLY. WILL CONTINUE TO MONITOR. SR UP X 2 BED IN LOW POSTION AND CALL LIGHT IN REACH.
[2018-06-14 11:38] VITALS: BP 120/36
[2018-06-14 14:54] VITALS: BP 109/49
[2018-06-14 20:00] VITALS: BP 101/65
--- NOTE | 2018-06-14 20:16 | NUR ---
RESUMED CARE OF PT, LYING IN BED RESPIRATIONS EVEN AND UNLABORED ON 2LPM VIA HFNC. 63 SR ON TELEMETRY. RIGHT FOREARM SALINE LOCKED. NIGHT MEDS AND FIORECET GIVEN FOR HEADACHE. PLAN OF CARE DISCUSSED, CALL LIGHT IN REACH. SEE NURSE ASSESSMENT.
[2018-06-15 00:50] VITALS: BP 110/42
--- NOTE | 2018-06-15 04:00 | NUR ---
EQUIPMENT PROCESSOR AT BEDSIDE TO OBTAIN VITALS, CALL LIGHT IN REACH. WILL CONTINUE WITH PLAN OF CARE.
--- NOTE | 2018-06-15 04:00 | NUR ---
INSEAMER AT BEDSIDE TO OBTAIN VITALS, CALL LIGHT IN REACH. WILL CONTINUE WITH PLAN OF CARE.
[2018-06-15 05:13] LABS: HEMOGLOBIN 11.4 g/dL (12-16); MCH 31.4 pg (26.0-34.0); MCHC 34.5 g/dL (31.0-37.0); MCV 90.9 fL (80.0-100.0); MEAN PLATELET VOLUME 8.1 fL (7.4-10.4); PLATELET COUNT 441 10x3/uL (130-400); RBC 3.63 10x6/uL (4.00-5.40); RDW 12.3 % (11.5-14.5); WBC 7.2 10x3/uL (4.8-10.8)
[2018-06-15 05:14] LABS: ANION GAP 12.3 mmol/L (8-16); CALCIUM 8.1 mg/dL (8.5-10.1); CARBON DIOXIDE 26.2 mmol/L (21.0-32.0); CREATININE - SERUM 0.8 mg/dL (0.6-1.3); POTASSIUM - SERUM 3.5 mmol/L (3.5-5.1)
[2018-06-15 05:35] VITALS: BP 116/59
--- NOTE | 2018-06-15 07:25 | NUR ---
ASSESSMENT DONE. DENIES NEEDS.
[2018-06-15 08:17] VITALS: BP 126/64
--- NOTE | 2018-06-15 09:36 | MORECARE ---
CASE MANAGEMENT DISCHARGE SUMMARY PATIENT: LUIS TELLES HEATHER UNIT: [id number] ADM DATE: 06/09/18 AGE: 78 : 40 SEX: F ROOM/BED: D.9745 AUTHOR: EDYTA,DOC PHYSICIAN: REFERRING PHYSICIAN: CHARLEEN PICKARD MD DATE OF SERVICE: 06/15/18 Discharge Plan Patient Name: LUIS TELLES Facility: [facility]:[place] : 1940 Planned Disposition: Home Anticipated Discharge Date: 06/15/18 Discharge Date: Expected LOS: 6 Initial Reviewer: [id number] Initial Review Date: 06/12/2018 Generated: 06/15/18 10:36 am Comments DCP- Discharge Planning Updated by [email or web address]: Paul Juárez on 06/15/18 8:[address] Patient Name: LUIS TELLES Encounter No: [id number] : 1940 Primary Insurance: MEDICARE A & B Anticipated DC Date: 06-15-2018 Planned Disposition: Home DCP follow-up note: CM RECEIVED OXYGEN TESTING, PT DID NOT QUALIFY FOR HOME OXYGEN, 93% ON ROOM AIR. CIRILO Marley DCP- Discharge Planning Updated by [id number]: Paul Juárez on 06/13/18 3:[address] Patient Name: LUIS TELLES Encounter No: [id number] : 1940 Primary Insurance: MEDICARE A & B Anticipated DC Date: 06-15-2018 Planned Disposition: Home DCP follow-up note: CM RECEIVED DISCHARGE ORDER AND OXYGEN TESTING. CM MET WITH PT IN ROOM TO DICUSS DISCHARGE NEEDS AND PLANNING. CM DISCUSSED AVAILABILITY OF REHAB SERVICES, HOME HEALTH AND MEDICAL EQUIPMENT. PT DENIES DISCHARGE NEEDS OTHER THAN OXYGEN AND HOPES NOT TO NEED IT FOR VERY LONG. CM PROVIDED PT WITH MEDICAL EQUIPMENT COMPANY LISTING. PT HAS NOT CHOICE OF PROVIDER, CHOICE LETTER SIGNED. IMPORTANT MESSAGE FROM MEDICARE PROVIDED AND EXPLAINED. PT REPORTS PLAN TO RETURN HOME AT DISCHARGE. PT WILL NEED QUALIFYING OXYGEN TESTING AND PHYSICIAN ORDERS WITHIN 48 HOURS OF DISCHARGE FOR CM TO ARRANGE HOME AND PORTABLE OXYGEN SERVICES WITH NO PROVIDER PREFERENCE. CIRILO Marley DCP- Discharge Planning Updated by [id number]: Paul Juárez on 06/12/18 12:[address] Patient Name: LUIS TELLES Admission Status: ER Accout number: [id number] Admission Date: 06-09-2018 : 1940 Admission Diagnosis:SHORTNESS OF BREATH Attending: CLAYTON PICKARD Current LOS: 3 Anticipated DC Date: 06-12-2018 Planned Disposition: Home Primary Insurance: MEDICARE A & B Discharge Planning Comments: CM MET WITH PT IN ROOM TO DISCUSS DISCHARGE PLANNING AND NEEDS. PT REPORTS LIVING AT HOME INDEPENDENTLY AND ALONE. PT HAS NO MEDICAL EQUIPMENT AND NO OUTSIDE SERVICES ASSISTING IN THE HOME. CM DISCUSSED AVAILABILITY OF HOME HEALTH, REHAB SERVICES AND MEDICAL EQUIPMENT. PT DENIES DISCHARGE NEEDS, REPORTS HER FRIEND WILL PICK HER UP FOR DISCHARGE HOME. IMPORTANT MESSAGE FROM MEDICARE PROVIDED AND EXPLAINED. Wardrobe Specialist: Paul Juárez DCPIA - Discharge Planning Initial Assessment Updated by [email or web address]: Paul Juárez on 06/12/18 1:23 pm * Is the patient Alert and Oriented? Yes * How many steps to enter\exit or inside your home? NONE * PCP DR DIAZ * Pharmacy [facility] ON [address] * Preadmission Environment Home Alone * ADLs Independent * Equipment None * Other Equipment NO MEDICAL EQUIPMENT PROVIDER PREFERENCE * List name and contact numbers for known caregivers / representatives who currently or will assist patient after discharge: CHRISTOPH NICE, FRIEND, * Verbal permission to speak to the caregivers and representatives has been obtained from the patient. N/A * Community resources currently utilized None * Please name any agencies selected above. NONE * Additional services required to return to the preadmission environment? No * Can the patient safely return to the preadmission environment? Yes * Has this patient been hospitalized within the prior 30 days at any hospital? No Coverage Notice Reviewer: [id number] - Alma Mireles Notice Issued Date-Time: 06/08/2018 15:30 Notice Type: Medicare Outpatient Observation Notice Notice Delivered To: Patient Relationship to Patient: Inspector Scales Name: Delivery Method: HAND - Hand Delivered Megan Days: Prior Verbal Notification: Recipient Understood Notice: Yes Recipient Signature: Yes Med Rec Note Co-signed by Attending: Coverage Notice Comment: Reviewer: [id number] Dago Juárez Notice Issued Date-Time: 06/12/2018 11:30 Notice Type: IM Discharge Notice Notice Delivered To: Patient Relationship to Patient: Inspector Scales Name: Delivery Method: HAND - Hand Delivered Megan Days: Prior Verbal Notification: Recipient Understood Notice: Yes Recipient Signature: Yes Med Rec Note Co-signed by Attending: Coverage Notice Comment: Reviewer: [email or web address] Juárez Notice Issued Date-Time: 06/13/2018 14:15 Notice Type: IM Discharge Notice Notice Delivered To: Patient Relationship to Patient: Inspector Scales Name: Delivery Method: HAND - Hand Delivered Megan Days: Prior Verbal Notification: Recipient Understood Notice: Yes Recipient Signature: Yes Med Rec Note Co-signed by Attending: Coverage Notice Comment: Reviewer: [email or web address] Juárez Notice Issued Date-Time: 06/13/2018 15:10 Notice Type: Patient Choice Letter Notice Delivered To: Patient Relationship to Patient: Inspector Scales Name: Delivery Method: HAND - Hand Delivered Megan Days: Prior Verbal Notification: Recipient Understood Notice: Yes Recipient Signature: Yes Med Rec Note Co-signed by Attending: Coverage Notice Comment: ANY MEDICAL EQUIPMENT COMPANY Last DP export: 06/13/18 3:12 p Patient Name: LUIS TELLES Page [id number] at 0936 All edits/amendments must be made on the electronic document DICTATION DATE: 06/15/18935 WOOD CASKET MAKER: NIURKA 06/15/18935 RPT#: [id number] DC DATE: STATUS: ADM IN [facility] [address] [place] [address] END OF REPORT
--- NOTE | 2018-06-15 09:52 | NUR ---
RETURN FROM RAIL TRACTOR OPERATOR PER BED. TR-BAND TO RT WRIST
--- NOTE | 2018-06-15 10:46 | NUR ---
WALTER NEEDS OR C/O. TELEMETRY SB 54. WILL MONITOR.
--- NOTE | 2018-06-15 11:44 | NUR ---
REVIEWED AND AGREE WITH ASSESMENT.
--- NOTE | 2018-06-15 11:56 | NUR ---
DC GIVEN TO PT
--- NOTE | 2018-06-15 12:01 | NUR ---
DC HOME PERSONAL CAR.
[2018-06-15 12:19] LABS: PROCALCITONIN 0.1 ng/mL (0.00-0.08)
--- NOTE | 2018-06-19 11:18 | DS ---
PATIENT:LUIS BARRIENTOS :40 MEDICAL RECORD: [id number] DISCHARGE SUMMARY ADMISSION DATE: 06/09/18 DISCHARGE DATE: 06/15/18 DISCHARGE DIAGNOSES: 1. Shortness of breath. 2. Atrial fibrillation. 3. Pulmonary edema. 4. Hypertension. HOSPITAL COURSE: Mrs. Barrientos presents with shortness of breath, dyspnea on exertion, was found to be in atrial fibrillation, underwent cardiac catheterization, revealing no significant coronary artery disease, underwent DC cardioversion, was discharged home with the addition of Eliquis and sotalol to her medical regimen. We will follow up with [facility] in 1 month. TRANSINT:[id number] Voice Confirmation ID: [id number] DOCUMENT ID: [id number] CHARLEEN PICKARD MD at 1118 CC: [id number] DICTATION DATE: 06/12/18 1119 MANAGER PSYCHIATRY: 06/13/18 0258 DIS IN 06/15/18 [place] [id number]
== END 2018-06-15 12:01 | disposition home or self-care (01) | DRG 291 ==
LOC: D.ER 12:26 → D.EDHOLD 15:27 → D.M2 15:27 → OBSVTIME 15:27 → D.M2 15:27
PROVIDERS: Family Medicine; Internal Medicine Nephrology; Internal Medicine Pulmonary Disease; ADMIT Internal Medicine Interventional Cardiology
DX: I11.0 Hypertensive heart disease with heart failure (principal); J18.9 Pneumonia, unspecified organism; J96.01 Acute respiratory failure with hypoxia; I50.31 Acute diastolic (congestive) heart failure; J81.1 Chronic pulmonary edema; I48.91 Unspecified atrial fibrillation; D50.9 Iron deficiency anemia, unspecified; K21.9 Gastro-esophageal reflux disease without esophagitis; G25.81 Restless legs syndrome; F41.9 Anxiety disorder, unspecified

== ENCOUNTER → 2018-08-16 09:05 | Outpatient (CLI) | payer MEDICARE, OTHER ==
[2018-06-13 12:21] VITALS: BMI 28.7
[~2018-08-16 09:05] MED LIST changes: +BETAPACE 80 MG80 MG PO; +ELIQUIS5 MG PO
--- NOTE | 2018-08-22 10:39 | EC ---
PATIENT:LUIS TELLES DATE OF SERVICE: 08/16/18 SEX: F MEDICAL RECORD: [id number] DATE OF : 40 LOCATION:[facility] AGE OF PATIENT: 78 ADMISSION DATE: 08/16/18 REFERRING PHYSICIAN: INTERPRETING PHYSICIAN: CHARLEEN MCGEE MD ECHOCARDIOGRAM REPORT ECHO CHARGES 4 ECHO COMPLETE Date: 08/16/18 CLINICAL DIAGNOSIS: CHF ECHOCARDIOGRAPHIC MEASUREMENTS (adult normal given) AC root (d.<3.7cm) 2.8 cm LV Septum d (<1.2 cm> 1.7 cm Valve Excursion 2.0 cm LV Septum (systole) 2.4 cm Left Atria (s.<4.0cm> 4.6 cm LVPW d(<1.2cm) 1.5 cm RV (d.<2.3cm) 2.4 cm LVPW (sytole) 2.1 cm LV diastole(<5.6CM) 4.0 cm MV E-F(>70mm/sec) cm LV systole 1.7 cm LVOT Diameter 1.9 cm MV exc.(>10mm) cm Est.ejection fraction (50-75%) % DOPPLER: LVIT cm/sec A 66.0 cm/sec E 101 cm/sec LA cm/sec RVSP 42.0 mmHg LVOT 83.0 cm/sec AOP1/2T m/s Asc. Ao 150 cm/sec RVOT 71.0 cm/sec RA cm/sec PA 83.0 cm/sec AV Gradient Peak 9.0 mmHg AV Mean 4.2 mmHg AV Area 1.8 cm MV Gradient Peak 9.8 mmHg MV Mean 1.8 mmHg MV Area cm COMMENTS: Virtual Classroom Manager: 1 BELLE MCBRIDEOE Core Winder Machine Operator: 1 Dr. Mcgee TAPE# PACS Pericardial Effusion N DATE OF SERVICE: ECHOCARDIOGRAM FINDINGS: 1. Left ventricular chamber size is within normal limits. Left ventricular systolic function is normal. Overall ejection fraction estimated at 60%. 2. Left atrium is enlarged at 4.6 cm. Right atrium and right ventricular chamber sizes are as well mildly dilated. 3. Valvular structures have normal structure and motion. ECHOCARDIOGRAM REPORT [id number] LUIS TELLES 4. Doppler interrogation reveals moderate mitral regurgitation, [id number] tricuspid regurgitation. No other valvular insufficiency or stenosis. Pulmonary systolic pressure is estimated at 42 mmHg. 5. No evidence of pericardial effusion or left ventricular thrombus. TRANSINT:[id number] Voice Confirmation ID: [id number] DOCUMENT ID: [id number] CHARLEEN MCGEE MD at 1039 CC: [id number] DICTATION DATE: 08/16/18 1206 AGENT: 08/16/18 1716 DEP CLI 08/16/18 [place] [id number] [place] [id number]
== END | disposition home or self-care (01) ==
LOC: D.ECHO 09:05
PROVIDERS: ATTEND Nurse Practitioner
DX: I50.9 Heart failure, unspecified (principal)